=== PATIENT | male | born 1960 | race Caucasian/White ===

== ENCOUNTER 2022-07-21 04:12 | Inpatient (IN) | payer SELFPAY ==
[~2022-07-21] VITALS: Ht 170.2 cm; Wt 74.0 kg
[2022-07-21 06:31] LABS: BASOPHILS % (AUTO) 0.7 % (0.0-2.0); EOSINOPHILS % (AUTO) 1.3 % (1.0-6.0); HEMATOCRIT 44.1 % (41-53); LYMPHOCYTES # (AUTO) 2.1 K/uL (1.0-4.8); LYMPHOCYTES % (AUTO) 22.7 % (22.0-44.0); MEAN CORPUSCULAR HEMOGLOBIN 29.9 pg (26.0-34.0); MEAN CORPUSCULAR HGB CONC 33.9 G/dL (31.0-37.0); MEAN CORPUSCULAR VOLUME 88 fL (80-100); MONOCYTES # (AUTO) 0.9 K/uL (0.1-1.0); MONOCYTES % (AUTO) 9.1 % (2.0-9.0); NEUTROPHILS # (AUTO) 6.2 K/uL (1.8-7.7); NEUTROPHILS % (AUTO) 66.2 % (40.0-70.0); PLATELET COUNT (AUTO) 266 K/uL (150-450); RED CELL DISTRIBUTION WIDTH 12.6 % (11.5-14.5)
[2022-07-21 06:55] LABS: ANION GAP 4 mmol/L (8-16); CALCIUM, TOTAL 9.4 mg/dL (8.8-10.5); CARBON DIOXIDE 31 mmol/L (22-29); CHLORIDE 104 mmol/L (98-107); CREATININE 1.07 mg/dL (0.60-1.30); GLOMERULAR FILTR. RATE CALC > 60 mL/min (>60); GLUCOSE,RANDOM 127 mg/dL (70-110); POTASSIUM 4.2 mmol/L (3.5-5.1); SODIUM SERUM 139 mmol/L (136-145); UREA NITROGEN, BLOOD 13 mg/dL (7-18)
[2022-07-21 07:00] LABS: ALANINE AMINOTRANSFERASE 147 U/L (12-78); ALBUMIN 3.9 g/dL (3.4-5.0); ALKALINE PHOSPHATASE 129 U/L (46-116); ASPARTATE AMINOTRANSFERASE 197 U/L (15-37); BILIRUBIN,TOTAL 1.7 mg/dL (0.1-1.0); LIPASE 103 U/L (73-393); TOTAL PROTEIN, SERUM 7.9 g/dL (6.4-8.2)
[2022-07-21 07:17] LABS: COVID AG,FIA SOURCE NASAL SWAB
[2022-07-21 07:36] LABS: APPEARANCE,URINE CLEAR (CLEAR); BILIRUBIN,URINE NEGATIVE (NEGATIVE); GLUCOSE, URINE (UA) NEGATIVE (NEGATIVE); KETONES,URINE NEGATIVE (NEGATIVE); LEUKOCYTE ESTERASE ,URINE NEGATIVE (NEGATIVE); NITRATE,URINE NEGATIVE (NEGATIVE); OCCULT BLOOD,URINE NEGATIVE (NEGATIVE); PH,URINE 7.5 (5.0-8.0); PROTEIN,URINE NEGATIVE (NEGATIVE); SPECIFIC GRAVITIY, URINE 1.008 (1.003-1.030); UROBILINOGEN,URINE <=1.0 mg/dL (<=1.0)
[2022-07-21 07:44] LABS: INFLUENZA TYPE A NEGATIVE FOR TYPE A (NEGATIVE); INFLUENZA TYPE B NEGATIVE FOR TYPE B (NEGATIVE)
[2022-07-21] MEDS ORDERED: PIPERACILLIN/TAZO 3.375 GM/D5W 50 ML IV ONE ×2 (10:30→16:00)
[2022-07-21] MEDS ORDERED: MORPHINE SULFATE 2 MG/ML SYRINGE IVP PRN (10:45)
[2022-07-21] MEDS ORDERED: BISACODYL 10 MG RECTAL RECTAL SUPPOSITORY PR PRN (10:45)
[2022-07-21] MEDS ORDERED: HydrALAZINE HCL 20 MG/ML VIAL IVP PRN (10:45)
[2022-07-21] MEDS ORDERED: IPRATROPIUM BROMIDE 0.5 MG/2.5 ML NEB SOLUTION NEB PRN (10:45)
[2022-07-21] MEDS ORDERED: ALBUTEROL SULFATE 2.5 MG/0.5 ML NEB SOLUTION NEB PRN (10:45)
[2022-07-21] MEDS ORDERED: 0.9% SODIUM CHLORIDE 10 ML SYRINGE IVP PRN (10:45)
[2022-07-21] MEDS ORDERED: DEXTROSE 50%-WATER 25 GM/50 ML SYRINGE IVP PRN (10:45)
[2022-07-21] MEDS ORDERED: ONDANSETRON HCL 4 MG/2 ML VIAL IVP PRN (10:45)
[2022-07-21] MEDS: PANTOPRAZOLE SODIUM 40 MG/VIAL IVP SCH (10:57)
[2022-07-21] MEDS: SODIUM CHLORIDE 0.9% 1,000 ML IV SCH (10:58)
[2022-07-21] MEDS ORDERED: GADOTERATE MEGLUMINE 10 MMOL/20 ML VIAL IVP ONE (11:23)
[2022-07-21] MEDS: HEPARIN SODIUM,PORCINE 5,000 UNITS/ML VIAL SQ SCH ×2 (15:16→23:05)
[2022-07-21 19:10] LABS: GLUCOSE,POINT OF CARE 99 MG/DL (70-110)
[2022-07-21 21:47] VITALS: BP 140/88
[2022-07-21] MEDS: PIPERACILLIN/TAZO 3.375 GM/D5W 50 ML IV SCH (22:17)
[2022-07-21 23:31] LABS: GLUCOMETER DEV NAME(LOC) 6N.2B; GLUCOSE,POINT OF CARE 109 MG/DL (70-110)
[2022-07-22 03:44] VITALS: BP 128/84
[2022-07-22] MEDS: PIPERACILLIN/TAZO 3.375 GM/D5W 50 ML IV SCH ×4 (04:23→22:07)
[2022-07-22] MEDS: SODIUM CHLORIDE 0.9% 1,000 ML IV SCH ×2 (04:27→16:09)
[2022-07-22 05:36] LABS: GLUCOMETER DEV NAME(LOC) 6N.2B; GLUCOSE,POINT OF CARE 108 MG/DL (70-110)
[2022-07-22 07:34] VITALS: BP 130/73
[2022-07-22 07:44] LABS: EOSINOPHILS % (AUTO) 4.3 % (1.0-6.0); HEMATOCRIT 43.1 % (41-53); HEMOGLOBIN 14.7 g/dL (13.5-17.5); LYMPHOCYTES # (AUTO) 2.4 K/uL (1.0-4.8); LYMPHOCYTES % (AUTO) 33.2 % (22.0-44.0); MEAN CORPUSCULAR HEMOGLOBIN 30.1 pg (26.0-34.0); MEAN CORPUSCULAR HGB CONC 34.2 G/dL (31.0-37.0); MEAN CORPUSCULAR VOLUME 88 fL (80-100); MONOCYTES # (AUTO) 0.5 K/uL (0.1-1.0); MONOCYTES % (AUTO) 6.5 % (2.0-9.0); PLATELET COUNT (AUTO) 254 K/uL (150-450); RED CELL DISTRIBUTION WIDTH 13.1 % (11.5-14.5)
[2022-07-22 08:15] LABS: ALANINE AMINOTRANSFERASE 214 U/L (12-78); ALBUMIN 3.5 g/dL (3.4-5.0); ALKALINE PHOSPHATASE 168 U/L (46-116); ANION GAP 6 mmol/L (8-16); ASPARTATE AMINOTRANSFERASE 126 U/L (15-37); BILIRUBIN,TOTAL 1.6 mg/dL (0.1-1.0); CALCIUM, TOTAL 8.7 mg/dL (8.8-10.5); CARBON DIOXIDE 29 mmol/L (22-29); CHLORIDE 104 mmol/L (98-107); CREATININE 1.17 mg/dL (0.60-1.30); GLOMERULAR FILTR. RATE CALC > 60 mL/min (>60); GLUCOSE,RANDOM 97 mg/dL (70-110); SODIUM SERUM 139 mmol/L (136-145); TOTAL PROTEIN, SERUM 7.4 g/dL (6.4-8.2); UREA NITROGEN, BLOOD 14 mg/dL (7-18)
[2022-07-22] MEDS: HEPARIN SODIUM,PORCINE 5,000 UNITS/ML VIAL SQ SCH ×2 (08:33→15:58)
[2022-07-22] MEDS: PANTOPRAZOLE SODIUM 40 MG/VIAL IVP SCH (08:33)
[2022-07-22] MEDS ORDERED: RINGERS SOLUTION,LACTATED 1,000 ML IV ONE ×2 (10:43→12:00)
[2022-07-22] MEDS ORDERED: SODIUM CHLORIDE 0.9% 1,000 ML ONE (11:43)
[2022-07-22] MEDS ORDERED: BUPIVACAINE 0.25%/EPI 1:200,000/PF 10 ML VIAL ONE ×2 (11:43)
[2022-07-22] MEDS ORDERED: SUGAMMADEX SODIUM 200 MG/2 ML VIAL IVP ONE (13:35)
[2022-07-22 13:36] LABS: GLUCOMETER DEV NAME(LOC) 6S.1B; GLUCOSE,POINT OF CARE 95 MG/DL (70-110)
[2022-07-22] MEDS ORDERED: FentaNYL CITRATE PF 100 MCG/2 ML VIAL IVP PRN (14:15)
[2022-07-22] MEDS ORDERED: HYDROmorphone HCL 2 MG/ML SYRINGE ONE (14:33)
[2022-07-22] MEDS: HYDROmorphone HCL 2 MG/ML SYRINGE IVP PRN ×3 (14:38→14:55)
[2022-07-22 15:57] VITALS: BP 141/95
[2022-07-22] MEDS: INSULIN LISPRO 100 UNITS/ML SQ PRN ×2 (17:39→21:20)
[2022-07-22 19:52] LABS: GLUCOMETER DEV NAME(LOC) 6S.1B; GLUCOSE,POINT OF CARE 140 MG/DL (70-110)
[2022-07-22] MEDS ORDERED: NALOXONE HCL 1 MG/ML 2 ML SYRINGE IVP PRN (20:15)
[2022-07-22] MEDS: MORPHINE SULFATE 2 MG/ML SYRINGE IVP PRN (20:24)
[2022-07-22 21:26] VITALS: BP 123/71
[2022-07-22] MEDS: ACETAMINOPHEN 325 MG TABLET PO PRN (22:37)
[2022-07-23 00:01] LABS: GLUCOMETER DEV NAME(LOC) 6S.1B; GLUCOSE,POINT OF CARE 176 MG/DL (70-110)
[2022-07-23] MEDS: HEPARIN SODIUM,PORCINE 5,000 UNITS/ML VIAL SQ SCH ×3 (00:31→16:07)
[2022-07-23] MEDS: OXYGEN THERAPY IH SCH ×3 (00:33→20:00)
[2022-07-23] MEDS: MORPHINE SULFATE 2 MG/ML SYRINGE IVP PRN ×4 (00:37→14:14)
[2022-07-23 00:42] VITALS: BP 114/84
[2022-07-23] MEDS: PIPERACILLIN/TAZO 3.375 GM/D5W 50 ML IV SCH ×4 (04:10→21:16)
[2022-07-23 04:47] VITALS: BP 146/88
[2022-07-23] MEDS ORDERED: ROCURONIUM BROMIDE 10 MG/ML 5 ML VIAL IVP ONE (05:31)
[2022-07-23] MEDS ORDERED: LIDOCAINE/PF 2% 5 ML VIAL IM ONE (05:31)
[2022-07-23] MEDS ORDERED: KETOROLAC TROMETHAMINE 60 MG/2 ML VIAL IM ONE (05:31)
[2022-07-23] MEDS ORDERED: PROPOFOL 1% 20 ML VIAL IVP ONE (05:31)
[2022-07-23] MEDS ORDERED: ONDANSETRON HCL 4 MG/2 ML VIAL IVP ONE (05:31)
[2022-07-23] MEDS ORDERED: MIDAZOLAM HCL 2 MG/2 ML VIAL IVP ONE (05:31)
[2022-07-23] MEDS ORDERED: FentaNYL CITRATE PF 100 MCG/2 ML VIAL IVP ONE (05:31)
[2022-07-23] MEDS: INSULIN LISPRO 100 UNITS/ML SQ PRN ×4 (06:10→21:27)
[2022-07-23 06:37] LABS: GLUCOMETER DEV NAME(LOC) 6S.1B; GLUCOSE,POINT OF CARE 144 MG/DL (70-110)
[2022-07-23 07:44] LABS: BASOPHILS % (AUTO) 0.2 % (0.0-2.0); EOSINOPHILS % (AUTO) 0.2 % (1.0-6.0); LYMPHOCYTES # (AUTO) 1.8 K/uL (1.0-4.8); LYMPHOCYTES % (AUTO) 14.4 % (22.0-44.0); MEAN CORPUSCULAR HGB CONC 34.1 G/dL (31.0-37.0); MEAN CORPUSCULAR VOLUME 88 fL (80-100); MONOCYTES # (AUTO) 0.9 K/uL (0.1-1.0); MONOCYTES % (AUTO) 7.3 % (2.0-9.0); NEUTROPHILS # (AUTO) 9.6 K/uL (1.8-7.7); NEUTROPHILS % (AUTO) 77.9 % (40.0-70.0); PLATELET COUNT (AUTO) 249 K/uL (150-450); RED BLOOD CELL COUNT(AUTO) 4.65 MIL/uL (4.50-5.90); RED CELL DISTRIBUTION WIDTH 12.9 % (11.5-14.5)
[2022-07-23 08:18] VITALS: BP 142/84
[2022-07-23 08:21] LABS: ALANINE AMINOTRANSFERASE 151 U/L (12-78); ALBUMIN 3.4 g/dL (3.4-5.0); ALKALINE PHOSPHATASE 147 U/L (46-116); ANION GAP 7 mmol/L (8-16); ASPARTATE AMINOTRANSFERASE 81 U/L (15-37); BILIRUBIN,TOTAL 1.1 mg/dL (0.1-1.0); CALCIUM, TOTAL 8.3 mg/dL (8.8-10.5); CARBON DIOXIDE 27 mmol/L (22-29); CHLORIDE 103 mmol/L (98-107); GLOMERULAR FILTR. RATE CALC > 60 mL/min (>60); GLUCOSE,RANDOM 118 mg/dL (70-110); POTASSIUM 3.2 mmol/L (3.5-5.1); SODIUM SERUM 137 mmol/L (136-145); TOTAL PROTEIN, SERUM 7.3 g/dL (6.4-8.2); UREA NITROGEN, BLOOD 10 mg/dL (7-18)
[2022-07-23] MEDS: PANTOPRAZOLE SODIUM 40 MG/VIAL IVP SCH (08:31)
[2022-07-23] MEDS: DOCUSATE SODIUM 100 MG CAPSULE PO PRN (08:33)
[2022-07-23] MEDS: SODIUM CHLORIDE 0.9% 1,000 ML IV SCH ×2 (08:34→16:08)
[2022-07-23] MEDS: POTASSIUM CHLORIDE 20 MEQ ER TABLET PO SCH (12:08)
[2022-07-23 16:26] VITALS: BP 149/84
[2022-07-23] MEDS: ACETAMINOPHEN 325 MG TABLET PO PRN (16:56)
[2022-07-23 17:46] LABS: GLUCOMETER DEV NAME(LOC) 6S.1B; GLUCOSE,POINT OF CARE 148 MG/DL (70-110)
[2022-07-23 19:31] LABS: GLUCOMETER DEV NAME(LOC) 6N.2B; GLUCOSE,POINT OF CARE 200 MG/DL (70-110)
[2022-07-23 19:45] VITALS: BP 120/70
[2022-07-24] MEDS: HEPARIN SODIUM,PORCINE 5,000 UNITS/ML VIAL SQ SCH ×4 (00:09→23:23)
[2022-07-24] MEDS: SODIUM CHLORIDE 0.9% 1,000 ML IV SCH ×2 (00:10→22:09)
[2022-07-24 02:31] LABS: GLUCOMETER DEV NAME(LOC) 6N.2B; GLUCOSE,POINT OF CARE 159 MG/DL (70-110)
[2022-07-24] MEDS: PIPERACILLIN/TAZO 3.375 GM/D5W 50 ML IV SCH ×4 (03:55→22:06)
[2022-07-24 04:15] VITALS: BP 122/81
[2022-07-24] MEDS: INSULIN LISPRO 100 UNITS/ML SQ PRN ×3 (05:00→17:45)
[2022-07-24 05:56] LABS: GLUCOMETER DEV NAME(LOC) 6S.1B; GLUCOSE,POINT OF CARE 154 MG/DL (70-110)
[2022-07-24] MEDS: ACETAMINOPHEN 325 MG TABLET PO PRN ×2 (06:02→16:59)
[2022-07-24 07:35] VITALS: BP 124/78
[2022-07-24] MEDS: OXYGEN THERAPY IH SCH ×2 (08:00→20:00)
[2022-07-24 08:04] LABS: BASOPHILS % (AUTO) 0.6 % (0.0-2.0); EOSINOPHILS % (AUTO) 0.9 % (1.0-6.0); HEMATOCRIT 38.5 % (41-53); HEMOGLOBIN 13.3 g/dL (13.5-17.5); LYMPHOCYTES # (AUTO) 3.1 K/uL (1.0-4.8); LYMPHOCYTES % (AUTO) 23.6 % (22.0-44.0); MEAN CORPUSCULAR HEMOGLOBIN 30.3 pg (26.0-34.0); MEAN CORPUSCULAR HGB CONC 34.6 G/dL (31.0-37.0); MEAN CORPUSCULAR VOLUME 88 fL (80-100); MONOCYTES # (AUTO) 0.9 K/uL (0.1-1.0); MONOCYTES % (AUTO) 7.2 % (2.0-9.0); NEUTROPHILS # (AUTO) 8.9 K/uL (1.8-7.7); NEUTROPHILS % (AUTO) 67.7 % (40.0-70.0); PLATELET COUNT (AUTO) 224 K/uL (150-450); RED BLOOD CELL COUNT(AUTO) 4.39 MIL/uL (4.50-5.90)
[2022-07-24 08:22] LABS: ANION GAP 8 mmol/L (8-16); CALCIUM, TOTAL 8.3 mg/dL (8.8-10.5); CARBON DIOXIDE 26 mmol/L (22-29); CHLORIDE 104 mmol/L (98-107); CREATININE 0.95 mg/dL (0.60-1.30); GLOMERULAR FILTR. RATE CALC > 60 mL/min (>60); GLUCOSE,RANDOM 107 mg/dL (70-110); POTASSIUM 3.4 mmol/L (3.5-5.1); SODIUM SERUM 138 mmol/L (136-145); UREA NITROGEN, BLOOD 8 mg/dL (7-18)
[2022-07-24 08:34] LABS: ALANINE AMINOTRANSFERASE 107 U/L (12-78); ALKALINE PHOSPHATASE 122 U/L (46-116); ASPARTATE AMINOTRANSFERASE 44 U/L (15-37); BILIRUBIN,TOTAL 1.2 mg/dL (0.1-1.0)
[2022-07-24 08:35] LABS: ALBUMIN 3.1 g/dL (3.4-5.0); TOTAL PROTEIN, SERUM 7.3 g/dL (6.4-8.2)
[2022-07-24] MEDS: POTASSIUM CHLORIDE 20 MEQ ER TABLET PO SCH (08:42)
[2022-07-24] MEDS: PANTOPRAZOLE SODIUM 40 MG/VIAL IVP SCH (08:49)
[2022-07-24] MEDS: DOCUSATE SODIUM 100 MG CAPSULE PO PRN (08:49)
[2022-07-24 11:36] LABS: GLUCOMETER DEV NAME(LOC) 6N.2B; GLUCOSE,POINT OF CARE 182 MG/DL (70-110)
[2022-07-24] MEDS ORDERED: AMOX1TAB16 PO (13:44)
[2022-07-24 15:48] VITALS: BP 134/96
[2022-07-24 19:56] VITALS: BP 141/84
[2022-07-24 20:03] VITALS: BP 119/79
[2022-07-24 21:16] LABS: GLUCOMETER DEV NAME(LOC) 6S.1B; GLUCOSE,POINT OF CARE 191 MG/DL (70-110)
[2022-07-24 22:11] LABS: GLUCOMETER DEV NAME(LOC) 6N.2B; GLUCOSE,POINT OF CARE 160 MG/DL (70-110)
[2022-07-25] MEDS: PIPERACILLIN/TAZO 3.375 GM/D5W 50 ML IV SCH ×4 (04:03→21:27)
[2022-07-25 04:46] VITALS: BP 128/86
[2022-07-25 06:31] LABS: GLUCOMETER DEV NAME(LOC) 6S.1B; GLUCOSE,POINT OF CARE 124 MG/DL (70-110)
[2022-07-25] MEDS: OXYGEN THERAPY IH SCH ×3 (08:00→20:00)
[2022-07-25] MEDS: HEPARIN SODIUM,PORCINE 5,000 UNITS/ML VIAL SQ SCH ×3 (08:00→23:33)
[2022-07-25 08:38] VITALS: BP 128/82
[2022-07-25] MEDS: PANTOPRAZOLE SODIUM 40 MG/VIAL IVP SCH (09:07)
[2022-07-25] MEDS: POTASSIUM CHLORIDE 20 MEQ ER TABLET PO SCH ×2 (09:08→15:21)
[2022-07-25] MEDS: SODIUM CHLORIDE 0.9% 1,000 ML IV SCH ×2 (11:17→20:44)
[2022-07-25] MEDS ORDERED: RINGERS SOLUTION,LACTATED 1,000 ML IV ONE (12:05)
[2022-07-25 12:07] LABS: GLUCOMETER DEV NAME(LOC) 6N.2B; GLUCOSE,POINT OF CARE 105 MG/DL (70-110)
[2022-07-25] MEDS ORDERED: IOTHALAMATE MEGLUMINE 600 MG/ML 50 ML VIAL IVP ONE (12:14)
[2022-07-25] MEDS ORDERED: FentaNYL CITRATE PF 100 MCG/2 ML VIAL IVP PRN (13:15)
[2022-07-25] MEDS ORDERED: HYDROmorphone HCL 2 MG/ML SYRINGE IVP PRN (13:15)
[2022-07-25] MEDS ORDERED: SUGAMMADEX SODIUM 200 MG/2 ML VIAL IVP ONE (13:50)
[2022-07-25 14:59] VITALS: BP 128/52
[2022-07-25 15:17] VITALS: BP 130/64
[2022-07-25] MEDS: INSULIN LISPRO 100 UNITS/ML SQ PRN ×2 (17:18→20:48)
[2022-07-25 17:56] LABS: GLUCOMETER DEV NAME(LOC) 6S.1B; GLUCOSE,POINT OF CARE 294 MG/DL (70-110)
[2022-07-25 19:45] VITALS: BP 132/87
[2022-07-25 22:21] LABS: GLUCOMETER DEV NAME(LOC) 6N.2B; GLUCOSE,POINT OF CARE 233 MG/DL (70-110)
[2022-07-26] MEDS: PIPERACILLIN/TAZO 3.375 GM/D5W 50 ML IV SCH ×2 (03:44→11:13)
[2022-07-26 04:25] VITALS: BP 126/85
[2022-07-26 06:11] LABS: GLUCOMETER DEV NAME(LOC) 6S.1B; GLUCOSE,POINT OF CARE 124 MG/DL (70-110)
[2022-07-26] MEDS ORDERED: 0.9% SODIUM CHLORIDE 10 ML VIAL IVP ONE (06:31)
[2022-07-26] MEDS ORDERED: ROCURONIUM BROMIDE 10 MG/ML 5 ML VIAL IVP ONE (06:31)
[2022-07-26] MEDS ORDERED: DEXAMETHASONE SOD PHOS 4 MG/ML VIAL IVP ONE (06:31)
[2022-07-26] MEDS ORDERED: PROPOFOL 1% 20 ML VIAL IVP ONE (06:31)
[2022-07-26] MEDS ORDERED: ONDANSETRON HCL 4 MG/2 ML VIAL IVP ONE (06:31)
[2022-07-26] MEDS ORDERED: METOCLOPRAMIDE HCL 5 MG/ML 2 ML VIAL IVP ONE (06:31)
[2022-07-26] MEDS ORDERED: LIDOCAINE/PF 2% 5 ML VIAL IM ONE (06:31)
[2022-07-26] MEDS: OXYGEN THERAPY IH SCH ×2 (08:00)
[2022-07-26] MEDS: POTASSIUM CHLORIDE 20 MEQ ER TABLET PO SCH (08:06)
[2022-07-26] MEDS: HEPARIN SODIUM,PORCINE 5,000 UNITS/ML VIAL SQ SCH (08:07)
[2022-07-26] MEDS: PANTOPRAZOLE SODIUM 40 MG/VIAL IVP SCH (08:07)
[2022-07-26 08:11] VITALS: BP 138/95
[2022-07-26] MEDS: SODIUM CHLORIDE 0.9% 1,000 ML IV SCH (11:16)
[2022-07-26] MEDS: INSULIN LISPRO 100 UNITS/ML SQ PRN (11:19)
[2022-07-26 12:21] LABS: GLUCOMETER DEV NAME(LOC) 6N.2B; GLUCOSE,POINT OF CARE 97 MG/DL (70-110)
[2022-07-26 13:39] LABS: BAND NEUTROPHILS % (MANUAL) 0 % (0-5)
[2022-07-26 13:47] LABS: HEMATOCRIT 41.7 % (41-53); HEMOGLOBIN 14.1 g/dL (13.5-17.5); MEAN CORPUSCULAR HEMOGLOBIN 30.4 pg (26.0-34.0); MEAN CORPUSCULAR HGB CONC 33.7 G/dL (31.0-37.0); MEAN CORPUSCULAR VOLUME 90 fL (80-100); PLATELET COUNT (AUTO) 329 K/uL (150-450); RED BLOOD CELL COUNT(AUTO) 4.63 MIL/uL (4.50-5.90); RED CELL DISTRIBUTION WIDTH 13.2 % (11.5-14.5)
[2022-07-26 14:36] LABS: LYMPHOCYTES % (MANUAL) 9 % (22-44); MONOCYTES % (MANUAL) 6 % (2-9); REACTIVE LYMPHOCYTES 8 % (0-0); SEGMENTED NEUTROPHILS % 77 % (40-70)
[2022-07-26] MEDS: ACETAMINOPHEN 325 MG TABLET PO PRN (14:38)
[2022-07-26] MEDS ORDERED: DOCU-385 PO (15:33)
[2022-07-26] MEDS ORDERED: HYDR-4723 PO (15:33)
[2022-07-26 15:52] VITALS: BP 126/91
[2022-07-26] MEDS ORDERED: FentaNYL CITRATE PF 100 MCG/2 ML VIAL IVP ONE (16:44)
== END 2022-07-26 16:45 | disposition home or self-care (01) | DRG 419 ==
LOC: EMS 04:15 → AHU 12:19 → 6S 20:16
PROVIDERS: ADMIT Internal Medicine; ATTEND Internal Medicine
PROC: 0FT44ZZ Resection of Gallbladder, Percutaneous Endoscopic Approach (ICD-10-PCS; principal; 2022-07-22 12:55)
PROC: 0FC98ZZ Extirpation of Matter from Common Bile Duct, Via Natural or Artificial Opening Endoscopic (ICD-10-PCS; 2022-07-25)
PROC: BF101ZZ Fluoroscopy of Bile Ducts using Low Osmolar Contrast (ICD-10-PCS; 2022-07-25)
DX: K80.00 Calculus of gallbladder with acute cholecystitis without obstruction (principal); Z20.822 Contact with and (suspected) exposure to COVID-19; E11.9 Type 2 diabetes mellitus without complications; R74.01 Elevation of levels of liver transaminase levels; I11.9 Hypertensive heart disease without heart failure; Z79.899 Other long term (current) drug therapy
CPT/HCPCS: 74183; 76700; 80053; 81003; 82962; 83690; 84484; 85007; 85025; 85027; 87081; 87804; 88300; 88304; 93005; 99285; C9113; G0238; J0690; J1100; J1170; J1644; J1885; J2250; J2270; J2405; J2543; J2704; J2765; J3010; J3490; J7030; J7120; Q9961; Q9967